=== PATIENT | male | born 1935 | race Caucasian/White ===

== ENCOUNTER 2022-04-03 13:02 | Emergency (ER) | payer MEDICARE, SELFPAY ==
[2022-04-03 13:08] VITALS: BP 147/94; PULSE 86; RESP 16; TEMP 36.9; O2SAT 98
--- NOTE | 2022-04-03 14:11 | ED.WOUNDLAC ---
HPI - Wound/Laceration General Chief Complaint: Wound/Laceration Stated Complaint: Wounds on both hands Time Seen by Provider: 04/03/22 13:30 Source: patient, family, RN notes reviewed and old records reviewed Mode of arrival: ambulatory Limitations: no limitations History of Present Illness HPI narrative: 86 year old male accompanied by family member present tp express care with complaints of injury to bilateral handsprior to arrival when he was changing tire and truck slipped off of tessa causing edge of truck to ht his hands. Patient has no acute bleeding to sites, patient is on Coumadin daily. Patient denies any acute pain to his hands, has full mobility of hands and fngrs. Onset (ago): hour(s) (within past hour prior to arrival) Location: other (bilateral hands) Patient tetanus UTD: No Treatments prior to arrival: bandage Related Data Home Medications Medication Instructions Recorded Confirmed hydrochlorothiazide 25 mg tablet 25 mg PO DAILY 04/03/22 04/03/22 loratadine 10 mg tablet 10 mg PO DAILY 04/03/22 04/03/22 losartan 25 mg tablet 25 mg PO DAILY 04/03/22 04/03/22 warfarin 5 mg tablet 7.5 mg PO 2XW 04/03/22 04/03/22 warfarin 5 mg tablet 10 mg PO 5XW 04/03/22 04/03/22 Allergies Allergy/AdvReac Type Severity Reaction Status Date / Time No Known Allergies Allergy Verified 04/03/22 13:59 Review of Systems Review of Systems: CONSTITUTIONAL: Denies fever, chills, or sweats. CARDIOVASCULAR: Denies chest pain, palpitations, or edema. RESPIRATORY: Denies cough or dyspnea. SKIN: Reports skin tears to bilateral dorsal hands right greater than left, no active bleeding noted. MUSCULOSKELETAL: Denies musculoskeletal pain NEUROLOGIC: Denies numbness, or weakness. All systems reviewed & are unremarkable except as noted in HPI and below PMFSH Past Medical History Medical History (Updated 04/08/22 @ 12:29 by Delphine Harper NP) Atrial fibrillation History of Coumadin therapy Hypertension Macular degeneration Surgical History Surgical History (Updated 04/08/22 @ 12:30 by Delphine Harper NP) Hx of cataract surgery bilateral Social History Social History (Updated 04/08/22 @ 12:32 by Delphine Harper NP) Smoking status: Never smoker Alcohol intake: unknown Substance use type: does not use Occupation/Education: retired Gender identity (if verbalized by the patient): Male Comments At time of signature, agree with nursing past medical, surgical, social and family history. There is no relevant family history pertinent to the presenting complaint Exam Narrative: larGENERAL: Well-appearing, well-nourished, and in no acute distress. HEAD: Normocephalic, atraumatic. NECK: Supple.no lymphadenopathy CHEST: Clear to auscultation. No respiratory distress.SAO2 98% on room air HEART: sl Irregular rate and rhythm. No murmur heard. Normal peripheral pulses. EXTREMITIES: Normal range of motion. No edema. SKIN: Warm, dry, no rash. Skin tears to left dorsal hand measure approximately 1cm X1cm and able to pull skin over wounds X2. Right hand has [id number] wound and able to pull skin over wound using Q-tip and triple antibiotic ointment. Larger skin tear to lateral aspect of dorsal hand 3cmX 2cm with skin torn and unable to picker/puller wound,trimmed loose skin with scissors. Wounds dressed by nurse with Telfa, gauze and Coban. NEURO: No focal deficits. Alert and oriented x3 Course Course Level of Care: Express Care Visit Vital Signs Vital signs: Vital Signs Temperature 36.9 C 04/03/22 13:08 Pulse Rate 86 04/03/22 13:08 Respiratory Rate 16 04/03/22 13:08 Blood Pressure 147/94 H 04/03/22 13:08 Pulse Oximetry 98 04/03/22 13:08 Oxygen Delivery Room Air 04/03/22 13:08 Temperature 36.9 C 04/03/22 13:08 Pulse Rate 86 04/03/22 13:08 Respiratory Rate 16 04/03/22 13:08 Blood Pressure 147/94 H 04/03/22 13:08 Pulse Oximetry 98 04/03/22 13:08 Oxygen Delivery Room Air 04/03/22 13
[2022-04-03] MEDS: TETANUS,DIPHTHERIA,AC PERTUSSIS ADULT (0.5 ML) BOOSTRIX IM (14:23)
== END 2022-04-03 14:45 | disposition home or self-care (01) ==
PROVIDERS: Emergency Provider Registered Nurse; PCP Internal Medicine
DX: S61.412A Laceration without foreign body of left hand, initial encounter (principal); S61.411A Laceration without foreign body of right hand, initial encounter; I48.91 Unspecified atrial fibrillation; I10 Essential (primary) hypertension; Z79.01 Long term (current) use of anticoagulants; Z23 Encounter for immunization; W45.8XXA Other foreign body or object entering through skin, initial encounter
CPT/HCPCS: 90471; 90715; 99213; G0463